=== PATIENT | female | born 1965 ===

== ENCOUNTER 2024-02-10 06:08 | Day surgery (SDC) | payer BC, SELFPAY ==
[2024-02-03 10:42] LABS: Hematocrit 36.3 % (37.0-47.0); Hemoglobin 11.9 g/dL (12.0-16.0); Mean Corp Hgb Conc. 32.8 g/dL (33.0-37.0); Mean Corpuscular Hgb 33.2 pg (27.0-31.0); Mean Corpuscular Volume 101.4 fL (81.0-99.0); Mean Platelet Volume 9.3 fL (7.4-10.4); Platelet Count 296 10^3/uL (130-400); Red Blood Cell Count 3.58 10^6/uL (4.20-5.40); Red Cell Dist. Width 13.2 % (11.5-14.5); White Blood Cell Count 8.1 10^3/uL (4.8-10.8)
[2024-02-03 10:58] LABS: Blood Urea Nitrogen 17 mg/dl (7-17); Calcium 9.5 mg/dl (8.4-10.2); Carbon Dioxide 29 mmol/L (22-30); Chloride 103 mmol/L (98-107); Glucose 86 mg/dl (70-99); Potassium 4.4 mmol/L (3.5-5.1); Sodium 140 mmol/L (135-145); eGFR > 60.00
[2024-02-03 13:52] VITALS: BMI 28.9
[2024-02-10] VITALS (13 sets, daily range): BP systolic 133–155; BP diastolic 66–90; BMI 28.9
[2024-02-10] MEDS: Pyridium 200 MG PO (06:31)
[2024-02-10] MEDS: HEPARIN 5000 UNITS SC (06:32)
[2024-02-10] MEDS: TRANSDERM-SCOP 1 PATCH TRANSDERM (06:44)
[2024-02-10] MEDS: SUBLIMAZE 50 MCG IV (10:13)
[2024-02-10] MEDS: TYLENOL 650 MG PO (11:25)
[2024-02-10] MEDS: ROXICODONE 5 MG PO (12:54)
== END 2024-02-10 12:55 | disposition home or self-care (01) ==
LOC: SDS 06:08
PROVIDERS: ATTENDING PHYSICIAN Obstetrics & Gynecology; FAMILY PHYSICIAN Ophthalmology
DX: N81.11 Cystocele, midline (principal); N95.2 Postmenopausal atrophic vaginitis; N39.3 Stress incontinence (female) (male); D25.2 Subserosal leiomyoma of uterus; N83.8 Other noninflammatory disorders of ovary, fallopian tube and broad ligament
CPT/HCPCS: 58571; 57283; 57250; 88305; 36415; 80048; 85027; 86850; 86860; 86900; 86901; 93005